=== PATIENT | female | born 2000 | race Caucasian/White ===

== ENCOUNTER 2022-07-20 10:11 | Inpatient (IN) | payer OTHER ==
[2022-07-20] MEDS ORDERED: Butorphanol Tartrate 1 MG/ML VIAL SLOW IVP PRN (10:17)
[2022-07-20] MEDS ORDERED: Promethazine HCl 25 MG/ML VIAL IM PRN ×2 (10:17→13:01)
[2022-07-20] MEDS ORDERED: Acetaminophen 500 MG TAB PO PRN (10:17)
[2022-07-20] MEDS ORDERED: hydrALAZINE 20 MG/ML VIAL SLOW IVP PRN ×2 (10:17→22:00)
[2022-07-20] MEDS ORDERED: Lidocaine 1% (PF) 30 ML VIAL SC PRN (10:17)
[2022-07-20] MEDS ORDERED: Ondansetron PF 4 MG/2 ML Vial IVP PRN ×3 (10:17→22:00)
[2022-07-20] MEDS ORDERED: Diphenoxylate HCl/Atropine Tablet PO PRN ×2 (10:17)
[2022-07-20] MEDS ORDERED: Ibuprofen 800 MG TAB PO PRN (10:17)
[2022-07-20] MEDS ORDERED: HYDROcodone/Acetaminophen 5/325 mg Tablet PO PRN ×2 (10:17)
[2022-07-20] MEDS ORDERED: Misoprostol 200 MCG TAB PR PRN (10:17)
[2022-07-20] MEDS ORDERED: Docusate 100 MG CAP PO PRN (10:17)
[2022-07-20] MEDS ORDERED: NS w/ Oxytocin 30 units 500 ML IV SCH ×2 (10:30)
[2022-07-20 11:52] LABS: Hemoglobin 13.4 g/dL (12.0-15.5); Mean Corpuscular HGB CONC 35.8 g/dL (32.0-36.0); Mean Corpuscular Hemoglobin 34.4 pg (27.0-33.0); Mean Corpuscular Volume 95.9 fl (81.6-98.3); Platelet Count 191 10x3/uL (150-450); White Blood Cell (WBC) Count 8.7 10x3/uL (3.5-10.5)
[2022-07-20 12:16] VITALS: BMI 22.8
[2022-07-20] MEDS ORDERED: Fentanyl 2 mcg/Bup 0.1% Cadd 100 ML ONE (12:21)
[2022-07-20 12:31] LABS: HBSAg Index 0.21 S/CO (0-0.99); HIV (1/2) Antibody/Antigen Non-Reactive (NonReactive); HIV 1/2 INDEX 0.06 S/CO (<1.00); Hep B Surf Ag Non-Reactive S/CO (NonReactive)
[2022-07-20 12:32] LABS: Syphilis Antibody Nonreactive (Nonreactive); Syphilis Antibody Index 0.06 S/CO (<1.00 Non-Reactive)
[2022-07-20] MEDS ORDERED: Acetaminophen 325 MG TAB PO PRN (13:01)
[2022-07-20] MEDS ORDERED: Naloxone HCl 0.4 mg/ml Vial IVP PRN ×2 (13:01)
[2022-07-20] MEDS ORDERED: Lactated Ringer's 500 ML IV PRN (13:01)
[2022-07-20] MEDS ORDERED: diphenhydrAMINE 50 MG/ML VIAL IVP PRN (13:01)
[2022-07-20] MEDS ORDERED: Moisturizing Cream (Eucerin) 113 GM JAR TOP PRN (13:01)
[2022-07-20] MEDS ORDERED: ePHEDrine Sulfate 50 MG/10 ML VIAL SLOW IVP PRN (13:01)
[2022-07-20] MEDS ORDERED: Fentanyl 2 mcg/Bupivacaine 0.1% Cassette 100 ML EPIDURAL SCH (13:15)
[2022-07-20] MEDS ORDERED: Communication Order-Pharmacy FS SCH (13:15)
[2022-07-20] MEDS ORDERED: NS w/ Oxytocin 30 units 500 ML ONE (13:43)
[2022-07-20] MEDS ORDERED: Lanolin Ointment 7 GM TUBE TOP PRN (22:00)
[2022-07-20] MEDS ORDERED: Boostrix 0.5 ML (Tdap) VIAL (>/=7 yrs of age) IM SCH (22:00)
[2022-07-20] MEDS ORDERED: Milk Of Magnesia 30 ML UDCUP PO PRN (22:00)
[2022-07-20] MEDS ORDERED: Benzocaine-Menthol 82.5 ML CAN TOP PRN (22:00)
[2022-07-20] MEDS ORDERED: Bisacodyl 10 MG SUPP PR PRN (22:00)
[2022-07-20] MEDS ORDERED: NS w/ Oxytocin 30 units 500 ML IVPB SCH (22:15)
[2022-07-20] MEDS: Ibuprofen 800 MG TAB PO SCH (22:19)
[2022-07-21] MEDS: Ibuprofen 800 MG TAB PO SCH ×3 (05:54→21:40)
[2022-07-21 07:32] LABS: SARS-CoV-2 NAA Rapid Test Not Detected (NotDetected)
[2022-07-21] MEDS: Lactated Ringer's 1,000 ML IV SCH ×4 (07:36→18:30)
[2022-07-21] MEDS: Ferrous Sulfate 325 MG TAB PO SCH ×2 (07:39→15:59)
[2022-07-21] MEDS ORDERED: HYDROcodone/Acetaminophen 5/325 mg Tablet PO PRN ×2 (08:16)
[2022-07-21] MEDS: Docusate 100 MG CAP PO SCH ×2 (08:30→21:40)
[2022-07-22] MEDS: Lactated Ringer's 1,000 ML IV SCH (01:50)
[2022-07-22] MEDS: Ibuprofen 800 MG TAB PO SCH (06:01)
[2022-07-22] MEDS: Ferrous Sulfate 325 MG TAB PO SCH (07:08)
[2022-07-22 08:26] VITALS: BP 127/74; TEMP 97.7
[2022-07-22] MEDS: Docusate 100 MG CAP PO SCH (09:23)
== END 2022-07-22 12:40 | disposition home or self-care (01) | DRG 768 ==
LOC: CSHLD 10:11 → CSHPP 20:50
PROVIDERS: ADMIT Obstetrics & Gynecology; ATTEND Obstetrics & Gynecology
PROC: 10E0XZZ Delivery of Products of Conception, External Approach (ICD-10-PCS; principal; 2022-07-20)
PROC: 0DQR0ZZ Repair Anal Sphincter, Open Approach (ICD-10-PCS; 2022-07-20)
PROC: 0W8NXZZ Division of Female Perineum, External Approach (ICD-10-PCS; 2022-07-20)
DX: O70.20 Third degree perineal laceration during delivery, unspecified (principal); Z37.0 Single live birth; Z3A.37 37 weeks gestation of pregnancy
CPT/HCPCS: 36415; 51702; 85027; 86780; 86850; 86900; 86901; 87340; 87389; U0002

== ENCOUNTER 2023-12-02 21:21 | Day surgery (SDC) | payer OTHER ==
[2023-12-02 21:41] VITALS: BMI 22.8
[2023-12-02] MEDS ORDERED: hydrALAZINE 20 MG/ML VIAL SLOW IVP PRN (21:59)
== END 2023-12-03 02:28 | disposition home or self-care (01) ==
LOC: CSHLD/OP 21:21
PROVIDERS: ATTEND Obstetrics & Gynecology
DX: O47.1 False labor at or after 37 completed weeks of gestation (principal); O09.213 Supervision of pregnancy with history of pre-term labor, third trimester; O99.013 Anemia complicating pregnancy, third trimester; Z79.899 Other long term (current) drug therapy; Z3A.38 38 weeks gestation of pregnancy
CPT/HCPCS: 99283